=== PATIENT | female | born 1995 | race Caucasian/White ===

== ENCOUNTER 2020-12-13 18:41 | Emergency (ER) | payer BC, SELFPAY ==
[2020-12-13 18:41] VITALS: BP 128/83; PULSE 98; RESP 16; TEMP 37.1; O2SAT 98; BMI 31.4
--- NOTE | 2020-12-13 18:49 | HMH.EDGENADL ---
ED Disposition Condition on Discharge: Good - Critical Care Critical Care Time: No <Ankush Kerr - Last Filed: 12/13/20 20:08> <Reza Grady - Last Filed: 12/13/20 21:41> Clinical Impression: Enteritis Abdominal pain Qualifiers: Abdominal location: generalized Qualified Code(s): R10.84 - Generalized abdominal pain Disposition: Home, Self-Care Instructions: DI for Acute Abdominal Pain Additional Instructions: call pcp for follow up Referrals: Provider,Referral, MD [Primary Care Provider] - Attestation: On 12/13/20, the high probability of a clinically significant, sudden or life threatening deterioration of the following system(s) required my full and direct attention, intervention and personal management. The time I documented below is in addition to time spent performing reported procedures but includes the following listed in this critical care notation. Medical Decision Making - Medical Records Medical records reviewed: Yes: I reviewed the patient's medical records. - Lul Inquiry Pt receiving controlled substance: No - Lab Data Result diagrams: 12/13/20 19:04 12/13/20 19:04 <Ankush Kerr - Last Filed: 12/13/20 20:08> - Lab Data Lab results reviewed: Yes: I reviewed the patient's lab results. Result diagrams: 12/13/20 19:04 12/13/20 19:04 - CT Data CT Scan: Abdomen, Pelvis Time Received: 21:[address] Reviewed: Yes: I have viewed the radiologist's interpretation Preliminary Findings: Abnormal (enteritis) <Reza Grady - Last Filed: 12/13/20 21:41> Vital Signs: 12/13/20 18:41 Temperature 98.8 F Temperature Source Oral Pulse Rate [Radial] 98 H Respiratory Rate 16 Blood Pressure [Right Arm] 128/83 Blood Pressure Mean [Right Arm] 98 Blood Pressure Position [Right Arm] Sitting 02 Sat by Pulse Oximetry 98 Oxygen Delivery Method Room Air - Lab Data Lab Results 12/13/20 19:00: Urine Color Dk yellow, Urine Appearance Sl cloudy, Urine pH 6.0, Ur Specific [place] 1.025, Urine Protein Trace, Urine Glucose (UA) Negative, Urine Ketones 1+, Urine Blood Negative, Urine Nitrate Negative, Urine Bilirubin Negative, Urine Urobilinogen 0.2, Ur Leukocyte Esterase Negative, Urine WBC 10-20, Ur Squamous Epith Cells 20-50, Urine Bacteria 3+, Urine Mucus 3+ 12/13/20 19:00: Lactate 0.8 12/13/20 19:04: Sodium 138, Potassium 3.8, Chloride 102, Carbon Dioxide 25, Anion Gap 14.8, BUN 10, Creatinine 0.70, Estimated Creat Clear 174, Estimated GFR 100, Est GFR ( Amer) 121, Glucose 93, Calcium 8.9, Total Bilirubin 0.5, AST 20, ALT 12, Alkaline Phosphatase 79, Total Protein 7.3, Albumin 4.6, Globulin 2.7, Albumin/Globulin Ratio 1.7, Lipase 42 12/13/20 19:04: WBC 7.3, RBC 3.96 L, Hgb 11.6 L, Hct 33.5 L, MCV 84.5, MCH 29.2, MCHC 34.7, RDW 13.9, Plt Count 198, MPV 8.8, Neut % (Auto) 73.1, Lymph % (Auto) 18.0, [place] % (Auto) 6.4, Eos % (Auto) 1.9, Baso % (Auto) 0.6, Neut # (Auto) 5.4, Lymph # (Auto) 1.3, [place] # (Auto) 0.5, Eos # (Auto) 0.1, Baso # (Auto) 0.0 12/13/20 19:04: Serum HCG, Qual Negative Orders (Tests/Meds): ED MEDICATIONS Generic Name Dose Route Start Last Admin Trade Name Freq PRN Reason Stop Dose Admin Lactated Ringer's 1,000 mls @ 999 mls/hr 12/13/20 19:00 12/13/20 19:13 Lactated Ringer's 1000 Ml Bag IV 12/13/20 20:00 999 mls/hr .Q1H1M JI Administration Discontinued Medications Generic Name Dose Route Start Last Admin Trade Name Freq PRN Reason Stop Dose Admin Iopamidol 75 ml 12/13/20 20:21 12/13/20 20:22 Iopamidol-370 (76%);100ml Bottle IV 12/13/20 20:22 75 ml ONCE ONE Administration Ondansetron HCl 4 mg 12/13/20 18:50 12/13/20 19:13 Ondansetron 4mg/2ml Vial IV 12/13/20 18:51 4 mg ONCE ONE Administration Sodium Chloride 10 ml 12/13/20 20:21 12/13/20 20:22 Sodium Chloride 0.9% 10ml Syr (Rad Only) IV 12/13/20 20:22 10 ml ONCE ONE Administration ORDERS Category Date Time Status Diarrhea 6-11 Panel, Cdiff PCR
--- NOTE | 2020-12-13 19:05 | CT_ITS ---
PROCEDURE INFORMATION: Exam: CT Abdomen And Pelvis With Contrast Exam date and time: 12/13/2020 7:05 PM Age: 25 years old Clinical indication: Fever and nausea and vomiting and other: Diarrhea; Prior surgery; Surgery date: 6+ months; Surgery type: C section; Patient HX: Nausea, vomiting, diarrhea, fever; Additional info: Pain, fever TECHNIQUE: Imaging protocol: Computed tomography of the abdomen and pelvis with contrast. Radiation optimization: All CT scans at this facility use at least one of these dose optimization techniques: automated exposure control; mA and/or kV adjustment per patient size (includes targeted exams where dose is matched to clinical indication); or iterative reconstruction. Contrast material: ISOVUE; Contrast volume: 75 ml; Contrast route: IV; COMPARISON: No relevant prior studies available. FINDINGS: Lungs: The visualized lung bases are unremarkable. Liver: Liver is enlarged measuring 19.5 cm in craniocaudal dimension. Liver does not meet criteria for steatosis on this study. Gallbladder and bile ducts: No gallbladder wall thickening. No radio-opaque stones. No common bile duct dilation. Pancreas: Unremarkable. No main pancreatic duct dilation. Spleen: Spleen is mildly enlarged, measuring 13.5 cm in AP dimension. Adrenal glands: Unremarkable. Kidneys and ureters: Symmetric, homogeneous enhancement of both kidneys. No hydronephrosis. Stomach and bowel: There is liquid stool throughout the colon compatible with a diarrheal illness. No definite colonic wall thickening. No small bowel dilation or obstruction. Appendix: Normal appendix. Intraperitoneal space: No pneumoperitoneum. Trace nonspecific pelvic free fluid. Vasculature: No abdominal aortic aneurysm. Lymph nodes: Scattered subcentimeter mesenteric lymph nodes, measuring up to 0.8 cm in short axis, likely reactive. Urinary bladder: Decompressed. No gross bladder wall thickening. Reproductive: There is a 2.0 cm homogeneous-appearing right ovarian cyst, presumably benign/physiologic. Bones/joints: Chronic irregularity of the posterior arch of S1. No acute fracture. Lower lumbar spondylosis with [id number] neural foraminal narrowing. Soft tissues: Unremarkable. IMPRESSION: 1. Liquid stool throughout the colon compatible with a nonspecific diarrheal illness. 2. Hepatosplenomegaly.
[2020-12-13 19:15] LABS: Basophils % 0.6 % (0.1-2.0); Eosinophils # 0.1 K/mm3 (0.0-0.4); Eosinophils % 1.9 % (0.1-12.0); Hematocrit 33.5 % (37.0-47.0); Lymphocytes # 1.3 K/mm3 (0.7-4.5); Mean Corpuscular Volume 84.5 fl (81-99); Mean Platelet Volume 8.8 fl (7.4-10.4); Monocytes # 0.5 K/mm3 (0.1-1.0); Monocytes % 6.4 % (1.7-9.3); Neutrophils # 5.4 K/mm3 (1.8-7.8); Neutrophils % 73.1 % (37.0-80.0); Platelet Count 198 K/mm3 (142-424); Red Blood Count 3.96 M/mm3 (4.20-5.40); Red Cell Distribution Width 13.9 % (11.5-17.5); White Blood Count 7.3 K/mm3 (4.8-10.8)
[2020-12-13 19:19] LABS: Alanine Aminotransferase 12 U/L (12-78); Albumin Level 4.6 g/dl (3.5-5.0); Albumin/Globulin Ratio 1.7 (1.1-1.8); Alkaline Phosphatase 79 U/L (38-126); Anion Gap 14.8 mEq/L (5-15); Aspartate Amino Transferase 20 U/L (14-36); Bilirubin,Total 0.5 mg/dl (0.2-1.3); Blood Urea Nitrogen 10 mg/dl (7-17); Calcium 8.9 mg/dl (8.4-10.2); Carbon Dioxide 25 mmol/L (22.0-30.0); Chloride 102 mmol/L (98-107); Creatinine Clearance Estimated 174 mL/min (50-200); Estimated Glomerular Filt Rate 100 ml/min (>60); GFR (African American) 121 ML/MIN (>60); Globulin 2.7 g/dL (1.3-3.2); Glucose 93 mg/dl (74-100); Lipase 42 U/L (23-300); Potassium 3.8 mmoL/L (3.5-5.1); Sodium 138 mmol/L (136-145); Total Protein,Serum 7.3 g/dl (6.3-8.2)
[2020-12-13 19:25] LABS: Hemoglobin 11.6 g/dL (12.2-16.2); Mean Corpuscular HGB Conc 34.7 g/dL (31.8-35.4); Mean Corpuscular Hemoglobin 29.2 pg (27.0-31.2)
[2020-12-13 19:30] LABS: Lactic Acid 0.8 mmol/L (0.7-2.1)
[2020-12-13 19:48] LABS: HCG Qualitative, Serum Negative (Negative)
[2020-12-13 19:51] LABS: Microscopic, Urine URINE MICROSCOPIC (MICROSCOPIC)
[2020-12-13 19:52] LABS: Appearance,Urine SL CLOUDY (Clear); Blood, Urine Negative (Negative); Color,Urine DK YELLOW (Yellow); Glucose,Urine (UA) Negative (Negative); Ketones,Urine 1+ (Negative); Leukocyte Esterase,Urine Negative (Negative); Nitrate,Urine Negative (Negative); Protein,Urine TRACE (Negative); Specific Gravity, Urine 1.025 (1.005-1.030); Urobilinogen,Urine 0.2 EU/dl (0.2)
[2020-12-13 20:01] LABS: Bilirubin,Urine Negative (Negative)
[2020-12-13 20:02] LABS: Bacteria,Urine 3+ /lpf; Mucus,Urine 3+ /lpf; Squamous Epithelial Cell,Urine 20-50 #/hpf (0-5)
--- NOTE | 2020-12-13 20:06 | PC.NURSE ---
Pt to rad.
--- NOTE | 2020-12-13 20:27 | PC.NURSE ---
Pt returned from rad.
--- NOTE | 2020-12-13 21:26 | PC.NURSE ---
called rad for update on report for ct scan. Jacquelin stated that it is being read at this time.
[2020-12-13 21:30] VITALS: BP 130/80; PULSE 95; RESP 16; TEMP 37.1; O2SAT 98
== END 2020-12-13 21:35 | disposition home or self-care (01) ==
PROVIDERS: Emergency Provider Family Medicine
DX: K52.9 Noninfective gastroenteritis and colitis, unspecified (principal); R10.84 Generalized abdominal pain
CPT/HCPCS: 74177; 80053; 81001; 83605; 83690; 84703; 85025; 87086; 96365; 96375; 99282; 99283; J2405; Q9967

== ENCOUNTER 2021-09-21 19:59 | Emergency (ER) | payer BC, SELFPAY ==
[2021-09-21 20:14] VITALS: BP 127/83; PULSE 76; RESP 16; TEMP 36.8; O2SAT 100; BMI 35.5
[2021-09-21 20:27] VITALS: BMI 35.5
--- NOTE | 2021-09-21 20:27 | CT_ITS ---
PROCEDURE INFORMATION: Exam: CT Abdomen And Pelvis With Contrast Exam date and time: 09/21/2021 8:52 PM Age: 26 years old Clinical indication: Abdominal pain; Generalized; Prior surgery; Surgery date: 6+ months; Surgery type: C sections x 2; Additional info: Pain , vomiting TECHNIQUE: Imaging protocol: Computed tomography of the abdomen and pelvis with contrast. Radiation optimization: All CT scans at this facility use at least one of these dose optimization techniques: automated exposure control; mA and/or kV adjustment per patient size (includes targeted exams where dose is matched to clinical indication); or iterative reconstruction. Contrast material: ISOVUE; Contrast volume: 75 ml; Contrast route: IV; COMPARISON: CT ABDOMEN PELVIS W CON 12/13/2020 8:09 PM FINDINGS: Liver: Normal. No mass. Gallbladder and bile ducts: No calcified stones. No ductal dilation. Pancreas: Normal enhancement. No ductal dilation. Spleen: No splenomegaly. Adrenal glands: No mass. Kidneys and ureters: No hydronephrosis. Stomach and bowel: No obstruction. No mucosal thickening. Appendix: No evidence of appendicitis. Intraperitoneal space: No free air. No significant fluid collection. Arteries: Unremarkable. No abdominal aortic aneurysm. Lymph nodes: No enlarged lymph nodes. Urinary bladder: No acute abnormality. Reproductive: 3.4 cm left ovarian ovoid lesion which is intermediate to high density. Bones/joints: No acute fracture. Soft tissues: No soft tissue swelling. IMPRESSION: 3.4 cm left ovarian ovoid lesion which is intermediate to high density and may be a hemorrhagic or proteinaceous cyst or solid mass. Consider targeted ultrasound for further evaluation.
--- NOTE | 2021-09-21 20:28 | HMH.EDNVD ---
ED Disposition Clinical Impression: Ovarian cyst Qualifiers: Laterality: left Qualified Code(s): N83.202 - Unspecified ovarian cyst, left side Disposition: Home, Self-Care Condition on Discharge: Good Instructions: DI for Ovarian Cyst Additional Instructions: use meds and see pcp for follow up Referrals: Maricel Martínez APRN [Primary Care Provider] - - Critical Care Critical Care Time: No Attestation: On 09/21/21, the high probability of a clinically significant, sudden or life threatening deterioration of the following system(s) required my full and direct attention, intervention and personal management. The time I documented below is in addition to time spent performing reported procedures but includes the following listed in this critical care notation. Medical Decision Making - Medical Records Medical records reviewed: Yes: I reviewed the patient's medical records. - Lul Inquiry Pt receiving controlled substance: No Vital Signs: 09/21/21 20:14 Temperature 98.3 F Temperature Source Oral Pulse Rate [Right Brachial] 76 Respiratory Rate 16 Blood Pressure [Right Arm] 127/83 Blood Pressure Mean [Right Arm] 97 Blood Pressure Source [Right Arm] Automatic Cuff Blood Pressure Position [Right Arm] Sitting 02 Sat by Pulse Oximetry 100 Oxygen Delivery Method Room Air - Lab Data Lab results reviewed: Yes: I reviewed the patient's lab results. Lab Results 09/21/21 20:16: Urine Color Yellow, Urine Appearance Clear, Urine pH 6.5, Ur Specific [place] 1.025, Urine Protein Negative, Urine Glucose (UA) Negative, Urine Ketones Negative, Urine Blood Negative, Urine Nitrate Negative, Urine Bilirubin Negative, Urine Urobilinogen 0.2, Ur Leukocyte Esterase Negative, Ur Squamous Epith Cells 10-20 09/21/21 20:16: Urine HCG, Qual Negative 09/21/21 20:20: WBC 7.9, RBC 4.47, Hgb 13.7, Hct 41.0, MCV 91.6, MCH 30.7, MCHC 33.5, RDW 14.3, Plt Count 272, MPV 9.6, Neut % (Auto) 58.8, Lymph % (Auto) 30.3, [place] % (Auto) 4.9, Eos % (Auto) 3.2, Baso % (Auto) 2.7 H, Neut # (Auto) 4.6, Lymph # (Auto) 2.4, [place] # (Auto) 0.4, Eos # (Auto) 0.3, Baso # (Auto) 0.2, ESR 14 09/21/21 20:20: Sodium 141, Potassium 3.9, Chloride 106, Carbon Dioxide 27, Anion Gap 11.9, BUN 9, Creatinine 0.60, Estimated Creat Clear 220, Estimated GFR 119, Est GFR ( Amer) 144, Glucose 86, Calcium 9.3, Total Bilirubin 0.3, AST 26, ALT 18, Alkaline Phosphatase 71, C-Reactive Protein 1.1, Total Protein 7.1, Albumin 4.6, Globulin 2.5, Albumin/Globulin Ratio 1.8, Amylase 58, Procalcitonin < 0.030 09/21/21 20:20: Lipase 70 Result diagrams: 09/21/21 20:20 09/21/21 20:20 Orders (Tests/Meds): ED MEDICATIONS Generic Name Dose Route Start Last Admin Trade Name Freq PRN Reason Stop Dose Admin Sodium Chloride 8 ml 09/21/21 20:28 Sodium Chloride 0.9% 10ml Vial IV 10/21/21 20:27 NEEDED PRN dilute pepcid Discontinued Medications Generic Name Dose Route Start Last Admin Trade Name Freq PRN Reason Stop Dose Admin Famotidine 20 mg 09/21/21 20:28 09/21/21 20:35 Famotidine 20mg/2ml Vial IV 09/21/21 20:29 20 mg ONCE ONE Administration Hydromorphone HCl 1 mg 09/21/21 20:39 09/21/21 20:43 Hydromorphone 2mg/Ml Syringe IV 09/21/21 20:40 1 mg ONCE ONE Administration Sodium Chloride 1,000 mls @ 999 mls/hr 09/21/21 20:30 09/21/21 20:35 Sod Chlor 0.9% 1000ml Bag IV 09/21/21 21:30 999 mls/hr .Q1H1M JI Administration Iopamidol 75 ml 09/21/21 21:02 09/21/21 21:03 Iopamidol-370 (76%);100ml Bottle IV 09/21/21 21:03 75 ml ONCE ONE Administration Ketorolac Tromethamine 30 mg 09/21/21 20:28 09/21/21 20:35 Ketorolac 30mg/Ml Vial IV 09/21/21 20:29 30 mg ONCE ONE Administration Metoclopramide HCl 10 mg 09/21/21 20:28 09/21/21 20:35 Metoclopramide Hcl 10mg/2ml Vial IVP 09/21/21 20:29 10 mg ONCE ONE Administration Ondansetron HCl 4 mg 09/21/21 20:28 09/21/21 20:36 Ondansetron 4mg/2ml Vial
[2021-09-21 20:35] LABS: Basophils # 0.2 K/mm3 (0-0.2); Basophils % 2.7 % (0.1-2.0); Eosinophils # 0.3 K/mm3 (0.0-0.4); Eosinophils % 3.2 % (0.1-12.0); Hemoglobin 13.7 g/dL (12.2-16.2); Lymphocytes # 2.4 K/mm3 (0.7-4.5); Lymphocytes % 30.3 % (10-50); Mean Corpuscular HGB Conc 33.5 g/dL (31.8-35.4); Mean Corpuscular Hemoglobin 30.7 pg (27.0-31.2); Mean Corpuscular Volume 91.6 fl (81-99); Mean Platelet Volume 9.6 fl (7.4-10.4); Monocytes # 0.4 K/mm3 (0.1-1.0); Monocytes % 4.9 % (1.7-9.3); Neutrophils # 4.6 K/mm3 (1.8-7.8); Neutrophils % 58.8 % (37.0-80.0); Platelet Count 272 K/mm3 (142-424); Red Blood Count 4.47 M/mm3 (4.20-5.40); Red Cell Distribution Width 14.3 % (11.5-17.5); White Blood Count 7.9 K/mm3 (4.8-10.8)
[2021-09-21 20:36] LABS: Microscopic, Urine URINE MICROSCOPIC (MICROSCOPIC)
[2021-09-21 20:39] LABS: Appearance,Urine CLEAR (Clear); Bilirubin,Urine Negative (Negative); Blood, Urine Negative (Negative); Color,Urine YELLOW (Yellow); Glucose,Urine (UA) Negative (Negative); Ketones,Urine Negative (Negative); Leukocyte Esterase,Urine Negative (Negative); Nitrate,Urine Negative (Negative); PH,Urine 6.5 (5.0-8.5); Protein,Urine Negative (Negative); Specific Gravity, Urine 1.025 (1.005-1.030); Urobilinogen,Urine 0.2 EU/dl (0.2)
[2021-09-21 20:42] LABS: Alanine Aminotransferase 18 U/L (12-78); Albumin Level 4.6 g/dl (3.5-5.0); Albumin/Globulin Ratio 1.8 (1.1-1.8); Alkaline Phosphatase 71 U/L (38-126); Amylase 58 U/L (30-110); Anion Gap 11.9 mEq/L (5-15); Aspartate Amino Transferase 26 U/L (14-36); Bilirubin,Total 0.3 mg/dl (0.2-1.3); Blood Urea Nitrogen 9 mg/dl (7-17); Calcium 9.3 mg/dl (8.4-10.2); Carbon Dioxide 27 mmol/L (22.0-30.0); Chloride 106 mmol/L (98-107); Creatinine Clearance Estimated 220 mL/min (50-200); Estimated Glomerular Filt Rate 119 ml/min (>60); GFR (African American) 144 ML/MIN (>60); Globulin 2.5 g/dL (1.3-3.2); Glucose 86 mg/dl (74-100); Potassium 3.9 mmoL/L (3.5-5.1); Sodium 141 mmol/L (136-145); Total Protein,Serum 7.1 g/dl (6.3-8.2)
[2021-09-21 20:42] LABS: Urine Pregnancy, HCG Qual. Negative (Negative)
[2021-09-21 20:43] LABS: Lipase 70 U/L (23-300)
[2021-09-21 20:48] LABS: C-Reactive Protein 1.1 mg/L (0-4)
[2021-09-21 21:02] LABS: Erythrocyte Sedimentation Rate 14 mm/hr (0-20)
[2021-09-21 21:07] LABS: Procalcitonin < 0.030 ng/mL (0.0-2.0)
--- NOTE | 2021-09-21 21:30 | PC.NURSE ---
pt taking for u/s via wheelchair
--- NOTE | 2021-09-21 21:39 | US_ITS ---
PROCEDURE INFORMATION: Exam: US Pelvis, Transvaginal Exam date and time: 09/21/2021 9:45 PM Age: 26 years old Clinical indication: Pelvic pain; Prior surgery; Surgery date: 6+ months; Surgery type: 2 c sections; Additional info: Abdominal pain left ovary cyst seen on CT scan. US recommended RO torsion TECHNIQUE: Imaging protocol: Real-time transvaginal pelvic ultrasound with image documentation. Transvaginal imaging was used for better evaluation of the endometrium, adnexa, and/or cervix. COMPARISON: CT ABDOMEN PELVIS W CON 09/21/2021 8:52 PM FINDINGS: Uterus: scar is visible. Endometrial stripe is normal. Cervix: Small nabothian cyst in the region of the cervix. Right ovary/adnexa: Normal. No mass. No torsion. Left ovary/adnexa: Left ovarian hypoechoic but ovoid lesion measuring 3.3 by 3.8 x 2.8 cm with minimal internal echoes but no significant color flow. No torsion. Intraperitoneal space: No free fluid. IMPRESSION: Left ovarian cystic lesion described above which may be an enlarged follicle or mildly complex or complicated cyst. Recommend 6-12 week follow-up to ensure resolution.
--- NOTE | 2021-09-21 22:12 | PC.NURSE ---
pt back from u/s
[2021-09-21 22:50] VITALS: BP 142/78; PULSE 80; RESP 18; TEMP 36.7; O2SAT 98
== END 2021-09-21 22:55 | disposition home or self-care (01) ==
PROVIDERS: Emergency Provider Emergency Medicine; PCP Nurse Practitioner
DX: N83.202 Unspecified ovarian cyst, left side (principal)
CPT/HCPCS: 74177; 76830; 80053; 81001; 81025; 82150; 83690; 84145; 85025; 85651; 86140; 96365; 96367; 96375; 99284; J2405; Q9967

== ENCOUNTER 2021-11-01 09:45 | Emergency (ER) | payer BC, SELFPAY ==
[2021-11-01 09:46] VITALS: BP 120/66; PULSE 60; RESP 16; TEMP 36.6; O2SAT 98; BMI 33.6
[2021-11-01 09:50] VITALS: BP 120/66; PULSE 60; RESP 16; TEMP 36.7; O2SAT 98; BMI 33.7
--- NOTE | 2021-11-01 09:55 | XR_ITS ---
FINAL REPORT CLINICAL HISTORY: pain. no known injury FINDINGS: 2 views of the right clavicle were obtained. There is no acute fracture. The joint spaces are intact. There is no soft tissue abnormality. IMPRESSION: No acute process. Reviewed, Interpreted and Dictated by Dulce Frank MD Transcribed by Choco Ruggiero Authenticated by Dulce Frank MD on 11/01/2021 11:04:[address] [facility]
[2021-11-01 10:13] VITALS: BP 120/66; PULSE 60; RESP 16; TEMP 36.7; O2SAT 98
--- NOTE | 2021-11-01 10:31 | HMH.EDUTC ---
[facility] [place] Disposition Clinical Impression: Muscle spasm Disposition: Home, Self-Care Condition on Discharge: Good Instructions: Naproxen, Cyclobenzaprine, Methylprednisolone, DI for Muscle Spasm Additional Instructions: *Naproxen destiny 12 hours with meal as needed for pain/inflammation *Not additional anti-inflammatory like ibuprofen motrin, aleve, advil with the above amount of Naproxen. You can still take Tylenol every 4 hours as needed if you need something else for pain *Ice 20 minutes every 2 hours for the first 48 hours after the initial injury followed by moist heat every 20 minutes 3-4 times a day to affected area *Muscle relaxer every 8 hours as needed for muscle spasms but remember, it WILL cause drowsiness You cannot take it and drive, operate machinery or care for small children. *Keep this area active, no movement leads to more stiffness, However take it easy and avoid heavy lifting pushing or pulling *Follow up with you family doctor if no improvement for further treatment Return if needed Follow up with your Family Doctor if no improvement or any worsening of symptoms You may call back to the [facility] later today for the official reading of your Xray Make sure to move shoulder after neg xray to help relieve tension and not restrict movement start slow Prescriptions: Cyclobenzaprine HCl [Flexeril 10mg tablet] 10 mg PO Q8HP PRN #15 tab PRN Reason: Muscle Spasm Transmission Status: Received by [facility] #[id number] methylPREDNISolone [Medrol 4mg tab] 4 mg PO DIRECTED #21 tab Transmission Status: Received by [facility][id number] Naproxen [Naproxen 500mg tab] 500 mg PO BID PRN #20 tab PRN Reason: Moderate Pain Transmission Status: Received by [id number] Referrals: Maricel Martínez APRN [Primary Care Provider] - As needed Forms: Work/School Release Medical Decision Making - Lul Inquiry Pt receiving controlled substance: No Lul was queried for this patient: No Vital Signs: 11/01/21 09:46 11/01/21 09:50 11/01/21 10:13 Temperature 98 F 98.0 F 98.0 F Temperature Source Oral Oral Pulse Rate 60 Pulse Rate [Radial] 60 60 Respiratory Rate 16 16 16 Blood Pressure 120/66 Blood Pressure [Right Arm] 120/66 120/66 Blood Pressure Mean [Right Arm] 84 84 Blood Pressure Source [Right Arm] Automatic Cuff Blood Pressure Position [Right Arm] Sitting Sitting 02 Sat by Pulse Oximetry 98 98 Oxygen Delivery Method Room Air - Lab Data Lab Results 11/01/21 10:38: [facility] Negative - Radiology Data #1 Image(s): Clavicle Image Reviewed: Yes I reviewed the patient's radiology image Preliminary Findings: No Fracture Seen Medical Decision Narrative: Patient reports that she woke up this morning with tightness and pain in her right shoulder area with movement and in right clavicle area States she did not do anything that could have caused injury that she just woke up like that States that pain/tightness is worse with movement able to move neck able to touch chin to chest without pain [facility] [place] HPI - General Stated complaint: rt collarbone pain Time Seen by Provider: 11/01/21 10:31 Mode of Arrival: Ambulatory Source of Information: Patient Limitations: No Limitations Description of Symptoms (Recalled from Triage Doc. by RN): PATIENT C/O PAIN TO RIGHT SIDE OF NECK AND RIGHT COLLAR BONE AREA SINCE THIS MORNING. NO KNOWN INJURY HEENT Symptoms (Recalled from RN notes): No Resp Symptoms (Recalled from RN notes): No Skin Symptoms (Recalled from RN notes): No MS Symptoms (Recalled from RN notes): Yes Functional Status (Recalled from RN notes): WNL - History of Present Illness Provider Complaint: Patient states that she woke up feeling sore in her right collarbone area and was at work talking with coworker States that she raised her arm and felt something pull States that she has been having spasm like pain since in her left shoulder and back area denies known injury reports leena
[2021-11-01 10:55] LABS: UTC Pregnancy Test, Urine Negative (Negative)
== END 2021-11-01 11:03 | disposition home or self-care (01) ==
PROVIDERS: Emergency Provider Nurse Practitioner; PCP Nurse Practitioner
DX: M62.838 Other muscle spasm (principal); M54.2 Cervicalgia; Z85.820 Personal history of malignant melanoma of skin
CPT/HCPCS: 73000; 81025; 99212; G0463